=== PATIENT | male | born 1960 | race Caucasian/White ===

== ENCOUNTER 2023-10-13 18:53 | Emergency (ER) | payer OTHER, BC, SELFPAY ==
--- NOTE | ~2023-10-13 | XR_ITS ---
EXAMINATION: XR hand RT min 3V DATE: 10/13/2023 19:14 INDICATION: Right hand injury. TECHNIQUE: 3 views of right hand were obtained. COMPARISON: None. FINDINGS: Bone alignment is normal. No fracture. There is severe osteoarthritis of triscaphe joint an d mild osteoarthritis of some of the metacarpophalangeal joints and interphalangeal joints. IMPRESSION: 1. Polyarticular osteoarthritis. Reviewed, dictated and finalized at location E.
[2023-10-13 19:05] VITALS: BP 133/85; PULSE 82; RESP 16; TEMP 36.3; O2SAT 99
[2023-10-13 19:06] VITALS: BP 133/85; PULSE 82; RESP 16; TEMP 36.3; O2SAT 99
--- NOTE | 2023-10-13 19:08 | ED.UPPEXIN ---
HPI - Extremity Injury (Upper) General Chief Complaint: Extremity Injury, Upper Stated Complaint: INJURED R HAND Time Seen by Provider: 10/13/23 19:08 Source: patient, RN notes reviewed and old records reviewed Mode of arrival: ambulatory Limitations: no limitations History of Present Illness HPI narrative: 62 year old male presents to [facility] with complaints of fall over a large bore hose this afternoon and then hitting the hose causing his 4th and 5th fingers to hyperextend with pain to the proximal dorsal aspect of hand over the 4th and 5h metacarpal with palpable tenderness and some swelling. Patient has full mobility of his fingers and hand denies any tingling or numbness to his finger with brisk capillary refill and strong right radial pulse. Patient denies any other injuries MD complaint: injury to: right and hand Onset (ago): day(s) (this afternoon) Other injuries: none Place: outdoors Severity scale (1-10): 5 Exacerbating factors: movement of extremity Treatments prior to arrival: other (none) Related Data Home Medications Medication Instructions Recorded Confirmed allopurinol 100 mg tablet 100 mg PO DAILY 10/13/23 10/13/23 bupropion HCl 150 mg 24 hr tablet, 150 mg PO DAILY 10/13/23 10/13/23 extended release losartan 25 mg tablet 25 mg PO DAILY 10/13/23 10/13/23 metformin 500 mg tablet,extended 500 mg PO DAILY 10/13/23 10/13/23 release 24 hr potassium citrate 10 mEq (1,080 10 meq PO DAILY 10/13/23 10/13/23 mg) tablet,extended release semaglutide 2 mg/dose (8 mg/3 mL) 2 mg subcut WEEKLY 10/13/23 10/13/23 subcutaneous pen injector (Ozempic) Allergies Allergy/AdvReac Type Severity Reaction Status Date / Time No Known Allergies Allergy Verified 10/13/23 19:01 Review of Systems Review of Systems: CONSTITUTIONAL: Denies fever, chills, or sweats. EYES: Denies visual changes, redness, or discharge. ENT: Denies rhinorrhea, congestion, sore throat, or otalgia. CARDIOVASCULAR: Denies chest pain, palpitations, or edema. RESPIRATORY: Denies cough or dyspnea. GASTROINTESTINAL: Denies abdominal pain, nausea, vomiting, or diarrhea. GENITOURINARY: Denies dysuria or hematuria. SKIN: Denies rash or itching. MUSCULOSKELETAL: Denies back pain,positive for pain to right hand with pain and swelling 4th and 5th metacarpal area, or myalgia. NEUROLOGIC: Denies headache, numbness, or weakness. PSYCHIATRIC: Denies anxiety or depression. All systems reviewed & are unremarkable except as noted in HPI and below PMFSH Past Medical History Medical History (Updated 10/13/23 @ 20:32 by Enedina Hernandez NP) Kidney stones Obesity Prediabetes Surgical History Surgical History (Updated 10/13/23 @ 19:30 by Enedina Hernandez NP) H/O gastric sleeve H/O lithotripsy Social History Social History (Updated 10/13/23 @ 19:29 by Enedina Hernandez NP) Smoking status: Never smoker Alcohol intake: current Alcohol use details: social Substance use type: does not use Living arrangements: with family Gender identity (if verbalized by the patient): Male Comments At time of signature, agree with nursing past medical, surgical, social and family history. There is no relevant family history pertinent to the presenting complaint Exam Narrative: GENERAL: Well-appearing, well-nourished,obese, and in no acute distress. HEAD: Normocephalic, atraumatic. EYES: PERRLA and EOMI. ENT: Nares clear, no rhinorrhea or epistaxis. Mucous membranes moist. NECK: Supple. no lymphadenopathy CHEST: Clear to auscultation. No respiratory distress.SAO2 HEART: Regular rate and rhythm. No murmur heard. Normal peripheral pulses. ABDOMEN: Soft, nontender, nondistended, normal active bowel sounds. EXTREMITIES: Normal range of motion. No edema.Exception noted of pain to dorsal aspect of right hand over the 4rd and 5th metacarpal region, full ROM of hand noted. Patient has palpable tenderness with some swelling noted no obvious deformity,
== END 2023-10-13 19:51 | disposition home or self-care (01) ==
PROVIDERS: Emergency Provider Registered Nurse
DX: S60.221A Contusion of right hand, initial encounter (principal); W18.09XA Striking against other object with subsequent fall, initial encounter; M19.041 Primary osteoarthritis, right hand; E66.9 Obesity, unspecified; Z68.41 Body mass index [BMI] 40.0-44.9, adult; R73.03 Prediabetes; Z98.84 Bariatric surgery status
CPT/HCPCS: 73130; 99213; G0463

== ENCOUNTER 2023-10-19 14:05 | Emergency (ER) | payer BC, OTHER, SELFPAY ==
--- NOTE | ~2023-10-19 | XR_ITS ---
EXAMINATION: XR hand RT min 3V DATE: 10/19/2023 14:36 INDICATION: Worsening right hand pain post fall TECHNIQUE: Posteroanterior, oblique and lateral views of the right hand were obtained. COMPARISON: 10/13/2023 FINDINGS: Bone alignment is normal. No fracture. Polyarticular osteoarthritis, severe at the triscaphe joint an d mild at the distal wrist, midcarpal, first carpometacarpal and multiple metacarpophalangeal and int erphalangeal joints. Soft tissues are unremarkable. IMPRESSION: 1. Polyarticular osteoarthritis at the right hand and wrist, severe at the triscaphe joint and otherw ise mild. Reviewed, dictated and finalized at location A. IMPRESSION: 1. Polyarticular osteoarthritis at the right hand and wrist, severe at the coral caphe joint and otherwise mild.
[2023-10-19 14:14] VITALS: BP 136/92; PULSE 78; RESP 16; TEMP 36.2; O2SAT 98
--- NOTE | 2023-10-19 14:23 | ED.GENADULT ---
HPI - General Adult General Chief complaint: Extremity Injury, Upper Stated complaint: Hand Pain Time Seen by Provider: 10/19/23 14:23 Source: patient, RN notes reviewed and old records reviewed Mode of arrival: ambulatory Limitations: no limitations History of Present Illness HPI narrative: 63-[facility]-old [facility] to [facility] for continued and increasing pain in right hand and right wrist with limited range of motion. Patient states he was seen here last week status post fall while at work. Patient's radiology report last week stated no acute fractures with findings of osteoarthritis. Patient's states that he has not followed up with his primary care provider. Patient denies numbness, tingling. Patient has attempted to treat at home with rest,, [id number] medications. Patient states it is becoming more problematic for him at work to perform the duties of his job. Related Data Home Medications Medication Instructions Recorded Confirmed allopurinol 100 mg tablet 100 mg PO DAILY 10/13/23 10/13/23 bupropion HCl 150 mg 24 hr tablet, 150 mg PO DAILY 10/13/23 10/13/23 extended release losartan 25 mg tablet 25 mg PO DAILY 10/13/23 10/13/23 metformin 500 mg tablet,extended 500 mg PO DAILY 10/13/23 10/13/23 release 24 hr potassium citrate 10 mEq (1,080 10 meq PO DAILY 10/13/23 10/13/23 mg) tablet,extended release semaglutide 2 mg/dose (8 mg/3 mL) 2 mg subcut WEEKLY 10/13/23 10/13/23 subcutaneous pen injector (Ozempic) Allergies Allergy/AdvReac Type Severity Reaction Status Date / Time No Known Allergies Allergy Verified 10/13/23 19:01 Review of Systems Review of Systems: All systems reviewed & are unremarkable except as noted in HPI and below Constitutional: Constitutional: Reports no additional constitutional complaints Eyes: Eyes: Reports no additional eye complaints ENT: Reports system reviewed and no additional complaints, except as documented Cardiovascular: Cardiovascular: Reports no additional cardiovascular complaints, Denies chest pain and Denies dyspnea Respiratory: Respiratory: Reports no additional respiratory complaints, Denies cough and Denies dyspnea Musculoskeletal: Musculoskeletal: Reports as per HPI, Denies deformity, Reports arthralgias, Reports limited range of motion, Denies numbness and Denies tingling Neurologic: Reports system reviewed and no additional complaints, except as documented Psychiatric: Psychiatric: Reports no additional psychiatric complaints PMFSH Past Medical History Medical History Kidney stones Obesity Prediabetes Surgical History Surgical History H/O gastric sleeve H/O lithotripsy Social History Social History Smoking status: Never smoker Alcohol intake: current Alcohol use details: social Substance use type: does not use Living arrangements: with family Gender identity (if verbalized by the patient): Male Comments At the time of my signature, I reviewed and agree with the nursing past medical, surgical, social, and family history. There is no relevant family history pertinent to the patient complaint. Exam Const: General: cooperative, healthy appearing, comfortable, no acute distress, alert and well nourished Nutritional Appearance: well nourished Orientation/consciousness: patient oriented x3 Limitations: no limitations HENMT: Head: normal to inspection Ears: external ears normal Face/Nose/Sinus: Normal external nose present, Normal nares present, normal facial exam, No erythema and No edema Face and sinus: normal facial exam, no erythema and no edema Mouth: Yes Normal oral and palatal mucosa present Eyes: General: appearance normal, both eyes and all related structures Neck: Neck: normal visual inspection, full ROM and no meningeal signs Ly
== END 2023-10-19 15:22 | disposition home or self-care (01) ==
PROVIDERS: Emergency Provider Nurse Practitioner Family
DX: M19.041 Primary osteoarthritis, right hand (principal); R73.03 Prediabetes; E66.9 Obesity, unspecified; Z68.41 Body mass index [BMI] 40.0-44.9, adult; Z98.84 Bariatric surgery status
CPT/HCPCS: 73130; 99213; G0463